=== PATIENT | male | born 1970 | race American Indian/Alaskan Native ===

== ENCOUNTER 2022-01-17 18:21 | Emergency (ER) | payer SELFPAY ==
[2022-01-17] MEDS ORDERED: Sodium Chloride 0.9% 1,000 ML IV ONE ×2 (20:00→20:51)
[2022-01-17 20:28] LABS: ANION GAP 19.8 mEq/L (7-13)
[2022-01-17] MEDS ORDERED: Piperacillin/Tazobactam 3.375 GM in Sodium Chloride 0.9% 100 ML IV ONE (20:30)
[2022-01-17] MEDS ORDERED: Magnesium Sulfate/Water 2 GM in Premix Bag 1 BAG IV ONE (20:34)
[2022-01-17] MEDS ORDERED: Sodium Chloride 0.9% 100 ML ONE (20:46)
== END 2022-01-17 21:37 ==
LOC: EDBD → DL.ED 18:21
DX: S82.092A Other fracture of left patella, initial encounter for closed fracture (principal); A41.9 Sepsis, unspecified organism; R65.21 Severe sepsis with septic shock; N17.9 Acute kidney failure, unspecified; R79.1 Abnormal coagulation profile; Z20.822 Contact with and (suspected) exposure to COVID-19; X50.1XXA Overexertion from prolonged static or awkward postures, initial encounter
CPT/HCPCS: 36415; 71045; 73562; 80053; 80307; 81001; 82150; 83605; 83690; 83735; 83880; 84484; 85025; 85379; 87040; 87077; 87086; 87088; 87635; 96361; 96365; 96368; 96375; 99285; J2543; J3370; J3475; J7030; J7040; U0002